=== PATIENT | male | born 1985 | race African-American/Black ===

== ENCOUNTER 2021-06-28 23:25 | Emergency (ER) | payer OTHER ==
[~2021-06-28] VITALS: Ht 172.7 cm; Wt 63.0 kg
[2021-06-28 23:27] VITALS: BP 146/68
[2021-06-28 23:53] VITALS: BP 146/68
--- NOTE | 2021-06-28 23:54 | NUR ---
PATIENT BIB [employer] DEPT. PATIENT EXAMINED BY DR. GUALLPA. PATIENT MEDICALLY CLEARED AND RELEASED IN CUSTODY IN STABLE CONDITION. ORIGINAL PRE-BOOK FORM GIVEN TO OFFICER .
--- NOTE | 2021-06-29 00:05 | NUR ---
PATIENT [facility] POLICE DEPT. PATIENT EXAMINED BY DR. GUALLPA. PATIENT MEDICALLY CLEARED AND RELEASED IN CUSTODY IN STABLE CONDITION. ORIGINAL PRE-BOOK FORM GIVEN TO OFFICER LUPE.
== END 2021-06-29 00:05 ==
LOC: MED 23:25
DX: Z02.89 Encounter for other administrative examinations (principal); V89.2XXA Person injured in unspecified motor-vehicle accident, traffic, initial encounter; Y93.89 Activity, other specified; Y92.410 Unspecified street and highway as the place of occurrence of the external cause; Y99.8 Other external cause status
CPT/HCPCS: 99283